=== PATIENT | male | born 1945 | race American Indian/Alaskan Native ===

== ENCOUNTER 2022-06-08 03:22 | Emergency (ER) | payer OTHER ==
--- NOTE | 2022-06-08 04:37 | XRay Report ---
RIGHT HIP 2 VIEWS INDICATION / CLINICAL INFORMATION: Right hip pain after fall. COMPARISON: None available. FINDINGS: BONES and JOINT(S): No acute fracture or subluxation. 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 SOFT TISSUES: No significant abnormality. ADDITIONAL FINDINGS: None. IMPRESSION: 1. No acute findings. 2. Degenerative changes as above. Signer Name: Lester Smiley MD Signed: 06/08/2022 4:33 AM Workstation Name: [id number]
[2022-06-08] MEDS ORDERED: MORPHINE 2 MG/1 ML INJ IV ONE (05:34)
[2022-06-08] MEDS ORDERED: ACETAMINOPHEN 325 MG TAB PO ONE (05:35)
[2022-06-08] MEDS ORDERED: MORPHINE 4 MG/1 ML INJ IV ONE (06:43)
--- NOTE | 2022-06-08 07:58 | Cat Scan Report ---
CT PELVIS WITHOUT CONTRAST INDICATION / CLINICAL INFORMATION: Right hip pain after fall. TECHNIQUE: Axial CT images were obtained through the pelvis without contrast. All CT scans at this [facility] are performed using CT dose reduction for ALARA by means of automated exposure control. COMPARISON: Right hip series performed earlier today. FINDINGS: BOWEL: No significant abnormality. APPENDIX: No significant abnormality. PERITONEUM: No free fluid. No free air. No fluid collection. LYMPH NODES: No significant adenopathy. ARTERIES: Mild atherosclerotic calcification without acute abnormality. VEINS: No significant abnormality. URINARY BLADDER: No significant abnormality. REPRODUCTIVE ORGANS: No significant abnormality. ADDITIONAL FINDINGS: None. SKELETAL SYSTEM: No acute fracture or dislocation. There is moderate osteoarthritis of the hips with mild degenerative changes noted along the pubic symphysis and SI joints. Moderate lumbar spondylosis is also present. IMPRESSION: 1. No acute findings. 2. Additional findings as above. Signer Name: Lester Smiley MD Signed: 06/08/2022 7:53 AM Workstation Name: [id number]
--- NOTE | 2022-06-08 08:07 | Emergency Department Report ---
ED Fall HPI - General Chief Complaint: Fall Stated Complaint: HIP PAIN Time Seen by Provider: 06/08/22 06:31 Source: patient, family Mode of arrival: Wheelchair - History of Present Illness Initial Comments: RT HIP PAIN AFTER A FALL FROM STANDING APROX 0100 HRS THIS AM. PAIN WORSE WITH MOVEMENT. PT IN WC INTO TRIAGE, PT C/A/O, RESP UNLAB, SKIN EXPECTED COLOR WDI. DENIES BLOOD THINNER USE -: Sudden, hour(s) Fall From: out of bed When Fall Occurred: 1-[address] Fall Occurred: home Loss of Consciousness: none Prolonged Down Time?: no Location: pelvis Location - Extremities: Right: Leg Severity: moderate Severity scale (0 -10): 5 Quality: dull Associated Symptoms: denies: denies, headache - Related Data Allergies Allergy/AdvReac Type Severity Reaction Status Date / Time aspirin Allergy Unknown Verified 06/08/22 03:30 ED Review of Systems ROS: Stated complaint: HIP PAIN Other details as noted in HPI Constitutional: denies: chills, fever Eyes: denies: eye pain, eye discharge, vision change ENT: denies: ear pain, throat pain Respiratory: denies: cough, shortness of breath, wheezing Cardiovascular: denies: chest pain, palpitations Endocrine: no symptoms reported Gastrointestinal: denies: abdominal pain, nausea, diarrhea Genitourinary: denies: urgency, dysuria Musculoskeletal: denies: back pain, joint swelling, arthralgia Skin: denies: rash, lesions Neurological: denies: headache, weakness, paresthesias Psychiatric: denies: anxiety, depression Hematological/Lymphatic: denies: easy bleeding, easy bruising ED Past Medical Hx - Past Medical History Previous Medical History?: No Hx Hypertension: No - Surgical History Past Surgical History?: No - Social History Smoking Status: Never Smoker ED Physical Exam - General Limitations: No Limitations General appearance: alert, in no apparent distress - Head Head exam: Present: atraumatic, normocephalic - Eye Eye exam: Present: normal appearance - ENT ENT exam: Present: mucous membranes moist - Neck Neck exam: Present: normal inspection - Respiratory Respiratory exam: Present: normal lung sounds bilaterally. Absent: respiratory distress - Cardiovascular Cardiovascular Exam: Present: regular rate, normal rhythm. Absent: systolic murmur, diastolic murmur, rubs, gallop - GI/Abdominal GI/Abdominal exam: Present: soft, normal bowel sounds - Rectal Rectal exam: Present: deferred - Extremities Exam Extremities exam: Present: normal inspection - Expanded Lower Extremity Exam Right Hip exam: Present: tenderness - Back Exam Back exam: Present: normal inspection - Neurological Exam Neurological exam: Present: alert, oriented X3 - Psychiatric Psychiatric exam: Present: normal affect, normal mood - Skin Skin exam: Present: warm, dry, intact, normal color. Absent: rash ED Course Vital Signs 06/08/22 03:27 Temperature 98.0 F Pulse Rate 63 Respiratory 18 Rate Blood Pressure 126/75 O2 Sat by Pulse 94 Oximetry Critical care attestation.: If time is entered above; I have spent that time in minutes in the direct care of this critically ill patient, excluding procedure time. ED Disposition Clinical Impression: Right hip pain Disposition: 01 HOME / SELF CARE / HOMELESS Is pt being admited?: No Does the pt Need Aspirin: No Condition: Stable Instructions: Hip Pain, Musculoskeletal Pain Referrals: PRIMARY CARE, [Primary Care Provider] - 3-5 Days
[2022-06-08 09:29] VITALS: BP 135/75
== END 2022-06-08 08:40 | disposition home or self-care (01) ==
LOC: ED 03:22
DX: M25.551 Pain in right hip (principal)
CPT/HCPCS: 72192; 73502; 96374; 96376; 99284; J2270; 96375